=== PATIENT | female | born 1980 | race African-American/Black ===

== ENCOUNTER 2018-09-13 17:11 | Emergency (ER) | payer MEDICAID ==
[2018-09-13] MEDS ORDERED: NORMAL SALINE 1000 ML 1,000 ML IV ONE (18:31)
[2018-09-13] MEDS ORDERED: IBUPROFEN 800 MG TABLET PO ONE (18:32)
--- NOTE | 2018-09-13 18:34 | ER Document Report ---
ED Medical Screen (RME) - General Chief Complaint: Leg Swelling Stated Complaint: LEG SWELLING Time Seen by Provider: 09/13/18 18:30 Primary Care Provider: MICHOACANO BONNER [Primary Care Provider] - Follow up as needed Mode of Arrival: Ambulatory Information source: Patient Notes: Patient presents complaining of left lower extremity swelling for the past 3 weeks. Patient reports fever that started yesterday. Patient does complain of headaches body aches. No cough no abdominal pain, no nausea or vomiting. Patient reports taking Tylenol [id number] 2 hours ago hx: Hypertension, diabetes I have greeted and performed a rapid initial assessment of this patient. A comprehensive ED assessment and evaluation of the patient, analysis of test results and completion of the medical decision making process will be conducted by additional ED providers. TRAVEL OUTSIDE OF THE [place] IN LAST 30 DAYS: No - Related Data Allergies/Adverse Reactions: No Known Allergies Allergy (Verified 09/13/18 17:12) Physical Exam - Vital signs Vitals: Temp Pulse Resp BP Pulse Ox 100.9 F H 108 H 16 152/89 H 98 09/13/18 17:21 09/13/18 17:21 09/13/18 17:21 09/13/18 17:21 09/13/18 17:21 - General General appearance: Appears well Notes: Tenderness and swelling to the anterior aspect of middle third of left tibia Course - Vital Signs Vital signs: Temp Pulse Resp BP Pulse Ox 100.9 F H 108 H 16 152/89 H 98 09/13/18 17:21 09/13/18 17:21 09/13/18 17:21 09/13/18 17:21 09/13/18 17:21 Doctor's Discharge - Discharge Referrals: MICHOACANO BONNER [Primary Care Provider] - Follow up as needed
--- NOTE | 2018-09-13 18:51 | RADIOLOGY REPORT (SQ) ---
EXAM DESCRIPTION: TIBIA FIBULA LEFT COMPLETED DATE/TIME: 09/13/2018 6:44 pm REASON FOR STUDY: L leg pain, swelling COMPARISON: None. NUMBER OF VIEWS: Two views. TECHNIQUE: Two radiographic images acquired of the left tibia and fibula to include the knee and ank le in at least one projection. LIMITATIONS: None. FINDINGS: MINERALIZATION: Normal. BONES: No acute fracture or dislocation. No worrisome bone lesions. No significant osteophytes. SOFT TISSUES: No obvious swelling or foreign body. OTHER: No other significant finding. IMPRESSION: NEGATIVE STUDY OF THE LEFT TIBIA AND FIBULA. NO EXPLANATION FOR PAIN. TECHNICAL DOCUMENTATION: JOB ID: [id number] [employer]- All Rights Reserved Reading location - IP/workstation name: [email or web address]
[2018-09-13 19:56] LABS: ABSOLUTE EOSINOPHILS # (AUTO) 0.3 10^3/uL (0.0-0.6); ABSOLUTE LYMPHOCYTES (AUTO) 0.2 10^3/uL (0.5-4.7); ABSOLUTE MONOCYTES (AUTO) 0.4 10^3/uL (0.1-1.4); ABSOLUTE NEUT (AUTO) 1.9 10^3/uL (1.7-8.2); BASOPHILS % (AUTO) 0.3 % (0-2); EOSINOPHILS % (AUTO) 9.1 % (0-6); HEMATOCRIT 41.8 % (36.0-47.0); HEMOGLOBIN 13.6 g/dL (12.0-15.5); LYMPHOCYTES % (AUTO) 6.7 % (13-45); MEAN CORPUSCULAR HGB CONC 32.6 g/dL (32.0-36.0); MEAN CORPUSCULAR VOLUME 83 fl (80-97); MONOCYTES % (AUTO) 13.9 % (3-13); PLATELET COUNT 241 10^3/uL (150-450); RED BLOOD COUNT 5.04 10^6/uL (3.72-5.28); RED CELL DISTRIBUTION WIDTH 12.8 % (11.5-14.0); TOTAL CELLS COUNTED % (AUTO) 100 %; WHITE BLOOD COUNT 2.7 10^3/uL (4.0-10.5)
[2018-09-13 20:00] LABS: VENOUS BLOOD BASE EXCESS -1.3 mmol/L; VENOUS BLOOD HCO3 24.6 mmol/L (20-32); VENOUS BLOOD PCO2 45.6 mmHg (35-63); VENOUS BLOOD PH 7.35 (7.30-7.42)
[2018-09-13 20:10] LABS: INTERNATIONAL RATION (INR) 1.06; PROTHROMBIN TIME 13.8 SEC (11.4-15.4)
[2018-09-13 20:14] LABS: AMORPHOUS SEDIMENT,URINE TRACE /HPF; APPEARANCE,URINE SLIGHTLY-CLOUDY; BILIRUBIN,URINE NEGATIVE (NEGATIVE); COLOR,URINE YELLOW; GLUCOSE, URINE >=500 mg/dL (NEGATIVE); KETONES,URINE NEGATIVE (NEGATIVE); LEUKOCYTE ESTERASE,URINE SMALL (NEGATIVE); NITRITE,URINE NEGATIVE (NEGATIVE); PROTEIN,URINE NEGATIVE (NEGATIVE); URINE SPECIFIC GRAVITY 1.037; UROBILINOGEN,URINE NEGATIVE mg/dL (<2.0)
[2018-09-13 20:21] LABS: ALANINE AMINOTRANSFERASE 28 U/L (9-52); ALBUMIN 4.3 g/dL (3.5-5.0); ALKALINE PHOSPHATASE 84 U/L (38-126); ANION GAP 13 (5-19); ASPARTATE AMINO TRANSFERASE 17 U/L (14-36); BILIRUBIN,DIRECT 0.3 mg/dL (0.0-0.4); BILIRUBIN,TOTAL 0.6 mg/dL (0.2-1.3); BLOOD UREA NITROGEN 11 mg/dL (7-20); CALCIUM 9.7 mg/dL (8.4-10.2); CARBON DIOXIDE 23 mmol/L (22-30); CHLORIDE 101 mmol/L (98-107); GLUCOSE 355 mg/dL (75-110); POTASSIUM 4.8 mmol/L (3.6-5.0); SODIUM 136.5 mmol/L (137-145); TOTAL PROTEIN 7.6 g/dL (6.3-8.2)
--- NOTE | 2018-09-13 21:13 | ER Document Report ---
ED Extremity Problem, Lower - General Chief Complaint: Leg Swelling Stated Complaint: LEG SWELLING Time Seen by Provider: 09/13/18 18:30 Primary Care Provider: [facility] [Provider Group] - Follow up as needed Mode of Arrival: Ambulatory Notes: Patient is a 38-year-old female with a history of type 2 diabetes and hypertension who presents to the emergency department with the chief complaint of left lower extremity swelling and fever. Patient states that about 3 weeks ago she noticed some swelling to the left lower extremity primarily around her luque. 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 She states that the swelling gets better when she is at rest and not working. Patient states she did go to her primary care physician and was placed on Bactrim for possible cellulitis on Thursday. Patient states she did take 3 doses of the antibiotic but has not noticed any improvement. Patient states that during her ER visit she has not noticed much swelling to her lower extremity but it is slightly more red than the right. Patient states that today she noticed she had a fever. She did return to her primary care physician's office for reevaluation. At that time her temperature was 101. Patient denies headache, dizziness, neck pain, chest pain, shortness of breath, cough, abdominal pain, urinary symptoms, nausea vomiting or diarrhea. Patient denies calf pain. She denies long recent travel. Patient states she was given a dose of Keflex in the [place] emergency department a few weeks ago. she states that this did not help with the redness and swelling. Her PCP then placed her on Bactrim which she is only had 2 days worth. TRAVEL OUTSIDE OF THE [place] IN LAST 30 DAYS: No - Related Data Allergies/Adverse Reactions: No Known Allergies Allergy (Verified 09/13/18 17:12) Past Medical History - General Information source: Patient - Social History Smoking Status: Never Smoker Cigarette use (# per day): No Chew tobacco use (# tins/day): No Frequency of alcohol use: None Drug Abuse: None Lives with: Family Family History: None Patient has suicidal ideation: No Patient has homicidal ideation: No - Past Medical History Cardiac Medical History: Reports: Hx Hypertension Pulmonary Medical History: Reports: None EENT Medical History: Reports: None Neurological Medical History: Reports: None Endocrine Medical History: Reports: Hx Diabetes Mellitus Type 2 Renal/ Medical History: Reports: None. Denies: Hx Peritoneal Dialysis Malignancy Medical History: Reports: None GI Medical History: Reports: None Musculoskeletal Medical History: Reports None Skin Medical History: Reports None Psychiatric Medical History: Reports: None Traumatic Medical History: Reports: None Infectious Medical History: Reports: None Past Surgical History: Reports: Hx Section - x2 Review of Systems - Review of Systems Constitutional: See HPI EENT: No symptoms reported Cardiovascular: No symptoms reported Respiratory: No symptoms reported Gastrointestinal: No symptoms reported Genitourinary: No symptoms reported Female Genitourinary: No symptoms reported Musculoskeletal: See HPI Skin: See HPI Hematologic/Lymphatic: No symptoms reported Neurological/Psychological: No symptoms reported Physical Exam - Vital signs Vitals: Temp Pulse Resp BP Pulse Ox 100.9 F H 108 H 16 152/89 H 98 09/13/18 17:21 09/13/18 17:21 09/13/18 17:21 09/13/18 17:21 09/13/18 17:21 Interpretation: Tachycardic, Febrile - Notes Notes: GENERAL: Well-appearing, well-nourished and in no acute distress. HEAD: Atraumatic, normocephalic. EYES: Pupils equal round and reactive to light, extraocular movements intact, sclera anicteric, conjunctiva are normal. ENT: Nares patent, oropharynx clear without exudates. Moist mucous membranes. NECK: Normal range of motion, supple without lymphadenopathy or JVD. LUNGS: Breath sounds clear to auscultation bilaterally and equal. No wheezes rales or rhonchi. HEART: Regular rate and rhythm without murmurs, rubs or gallops. ABDOMEN: Soft, nontender, normoactive bowel sounds. No guarding, no rebound. No masses appreciated. BACK: No cervical, thoracic, lumbar midline tenderness. No saddle anesthesia, normal distal neurovascular exam. GENITOURINARY: Deferred. EXTREMITIES: Normal range of motion. No clubbing or cyanosis. +1 pitting edema to anterior left lower extremity with mild erythema, no LLE calf swelling, strong dorsalis pedis pulses bilaterally, no open cuts or wounds. NEUROLOGICAL: Cranial nerves II through XII grossly intact. Normal speech, normal gait. PSYCH: Normal mood, normal affect. SKIN: Warm, Dry, normal turgor, no rashes or lesions noted. Course - Re-evaluation Re-evalutation: 09/14/18 After initial evaluation patient sitting on stretcher no acute distress. I did discuss the x-ray findings as well as the laboratory studies with the patient. Patient states she has only had 2 days worth of her Bactrim prescription. We will continue the Bactrim for 1 week and have patient follow-up with her primary care physician. I did give the patient strict instructions to return if she develops worsening cellulitis and redness that is streaking up her leg, high fevers, uncontrollable vomiting, or any other concerning signs or symptoms. I did educate the patient to watch her blood sugars carefully as with infection the sugars can increase. Patient states she did not have any of her diabetes medications today. After the patient to go home and take her medications. - Vital Signs Vital signs: Temp Pulse Resp BP Pulse Ox 98.4 F 90 14 144/92 H 99 09/13/18 21:54 09/13/18 21:54 09/13/18 21:54 09/13/18 21:54 09/13/18 21:54 - Laboratory Result Diagrams: 09/13/18 19:30 09/13/18 19:30 Laboratory results interpreted by me: 09/13/18 09/13/18 09/13/18 19:30 19:30 19:30 WBC 2.7 L Lymphocytes % 6.7 L Monocytes % 13.9 H Eosinophils % 9.1 H Absolute Lymphocytes 0.2 L Sodium 136.5 L Glucose 355 H POC Glucose Urine Glucose (UA) >=500 H Ur Leukocyte Esterase SMALL H Urine Ascorbic Acid 40 H 09/13/18 20:33 WBC Lymphocytes % Monocytes % Eosinophils % Absolute Lymphocytes Sodium Glucose POC Glucose 282 H Urine Glucose (UA) Ur Leukocyte Esterase Urine Ascorbic Acid - Diagnostic Test Radiology reviewed: Reports reviewed Discharge - Discharge Clinical Impression: Cellulitis Qualifiers: Site of cellulitis: extremity Site of cellulitis of extremity: lower extremity Laterality: left Qualified Code(s): L03.116 - Cellulitis of left lower limb Condition: Stable Disposition: HOME, SELF-CARE Additional Instructions: Today you were seen in the emergency department with left lower leg pain and fever. Your lab work was unremarkable but did show that your blood sugar was elevated at 282. Please continue your diabetes medications as previously prescribed and follow-up with your primary care physician. Keep a log of your blood sugars so you can give this to your doctor. Since you have only had 2 days of your Bactrim and none today, I will place you on a 7-day course of Bactrim. Please follow-up with your primary care physician or return to the emergency department for worsening of symptoms to include high fever, chills, redness that radiates up your leg. Please return to the emergency department for high fevers, worsening of redness, open wounds on the lower extremity, calf pain or any other acute distress. Cellulitis You have an infection of your skin and underlying soft tissues called cellulitis. This is due to bacteria, which can enter through any break in the skin, or even through an irritated hair follicle. Untreated, cellulitis will usually worsen. Antibiotics are required. Usually, warm packs or warm soaks, and elevation of the infected area are recommended. You should start getting better within 24 to 36 hours. Most infections respond quickly to the right medication. Follow-up care is important, however, to check for abscess (boil) formation, unsuspected foreign body, or resistant infection. If you develop fever, chills, or if the area of infection is becoming rapidly more swollen or painful, call the doctor at once. Prescriptions: Sulfamethoxazole/Trimethoprim [Bactrim Ds Tablet] 2 tab PO BID 7 Days #14 tablet Referrals: [facility] [Provider Group] - Follow up as needed
[2018-09-13 21:55] VITALS: BP 144/92
[2018-09-13] MEDS ORDERED: SULFAMETHOXAZOLE/TRIMETHOPRIM 800-160 MG TABLET PO ONE (22:38)
--- NOTE | 2018-09-14 00:39 | EKG REPORT ---
SEVERITY:- ABNORMAL ECG - SINUS TACHYCARDIA LEFT VENTRICULAR HYPERTROPHY BORDERLINE T ABNORMALITIES, INFERIOR LEADS : Confirmed by: Steven Mandel 14-Sep-2018 00:38:06
== END 2018-09-13 22:58 | disposition home or self-care (01) ==
LOC: ER 17:11
DX: L03.116 Cellulitis of left lower limb (principal); M79.89 Other specified soft tissue disorders; R50.9 Fever, unspecified; E11.9 Type 2 diabetes mellitus without complications; I10 Essential (primary) hypertension
CPT/HCPCS: 93005; 99284; 36415; 87040; 87086; 82962; 84703; 85025; 85610; 80053; 81001; 82803; 83605; 73590; 93010; J3490